=== PATIENT | male | born 1985 | race Caucasian/White ===

== ENCOUNTER 2019-01-31 05:19 | Emergency (ER) | payer SELFPAY ==
[~2019-01-31] VITALS: Ht 172.7 cm; Wt 74.8 kg
[2019-01-31 05:24] VITALS: BP 119/75
--- NOTE | 2019-01-31 05:36 | NUR ---
PT CAME TO ER BY SELF C/O RIGHT ARM WOUND. PATIENT HAS A RIGHT ANTECUBITAL FOSSA EXTRAVASATION. PATIENT STATES HE USES METH AND SHOOTS IT IN HIS RIGHT ARM. HE STATES HE LAST USED 1 HOUR AGO. NO SOB. BREATHING EVENLY AND UNLABORED.
--- NOTE | 2019-01-31 05:40 | NUR ---
PATIENT'S WOUND CLEANED
--- NOTE | 2019-01-31 05:40 | NUR ---
SEEN AND EXAMINED BY
--- NOTE | 2019-01-31 06:09 | NUR ---
ARM BAND REMOVED. PATIENT'S GAIT IS STEADY.
--- NOTE | 2019-01-31 06:11 | NUR ---
PATIENT LEFT AGAINST MEDICAL ADVICE. SEEN AND EXAMINED BY
--- NOTE | 2019-01-31 06:13 | NUR ---
Patient does not wish to proceed with medical care recommended by Dr. Soler. Patient given information related to possible complications, up to and including , which could occur as a result of leaving the hospital at this time. Patient verbalizes understanding of risks involved due to leaving against medical advice. Patient has signed AMA form.
== END 2019-01-31 06:27 | disposition left against medical advice (07) ==
LOC: ER 05:23
DX: L53.9 Erythematous condition, unspecified (principal); Z98.890 Other specified postprocedural states; Z60.2 Problems related to living alone
CPT/HCPCS: 99281; A6403

== ENCOUNTER 2019-01-31 11:24 | Emergency (ER) | payer MEDICAID ==
[~2019-01-31] VITALS: Ht 172.7 cm; Wt 74.8 kg
--- NOTE | 2019-01-31 11:30 | NUR ---
"i need seroquel." "im suicidal and i want to ." +si, "ill cut my wrist" PT TO BED 12, -SOB, NAD NOTED, VSS, PENDING MD LOBO
--- NOTE | 2019-01-31 11:58 | NUR ---
securuty at bedside. wanded. belongings to safe locker. sitter at bedside.
[2019-01-31 12:27] LABS: BASOPHILS % (AUTO) 0.4 % (0.0-2.0); EOSINOPHILS % (AUTO) 1.3 % (0.0-6.0); HEMATOCRIT 35 % (39-51); HEMOGLOBIN 11.7 g/dL (13.5-17.5); LYMPHOCYTES # (AUTO) 1.7 /CMM (0.8-4.8); MEAN CORPUSCULAR HGB CONC 34 g/dl (31.0-36.0); MEAN CORPUSCULAR VOLUME 85 fL (80-96); MONOCYTES # (AUTO) 1.3 /CMM (0.1-1.30); MONOCYTES % (AUTO) 12.4 % (2.0-12.0); NEUTROPHILS # (AUTO) 7.4 /CMM (1.8-8.9); NEUTROPHILS % (AUTO) 69.9 % (43.0-81.0); PLATELET COUNT (AUTO) 376 /CMM (150-450); RED BLOOD CELL COUNT(AUTO) 4.14 MIL/uL (4.5-6.0); WHITE BLOOD COUNT (AUTO) 10.5 K/uL (4.3-11.0)
[2019-01-31 12:37] LABS: APPEARANCE,URINE Clear (CLEAR); BILIRUBIN,URINE Negative (NEGATIVE); BLOOD, URINE Negative Ery/uL (NEGATIVE); COLOR,URINE Yellow (YELLOW); KETONES,URINE Negative (NEGATIVE); LEUKOCYTE ESTERASE ,URINE Negative (NEGATIVE); NITRITE, URINE Negative (NEGATIVE); PROTEIN,URINE Negative (NEGATIVE); UGLUCOSE Negative (NEGATIVE); UROBILINOGEN,URINE 0.2 EU/dL (0.2)
[2019-01-31 12:39] LABS: CARBON DIOXIDE 30 mmol/L (21-32); CHLORIDE 107 mmol/L (98-107); CREATININE 0.7 mg/dL (0.6-1.3); GLUCOSE 84 mg/dL (74-106); POTASSIUM 3.9 mmol/L (3.5-5.1); SODIUM SERUM 143 mmol/L (136-145); UREA NITROGEN, BLOOD 12 mg/dL (7-18)
[2019-01-31 12:44] LABS: ALANINE AMINOTRANSFERASE 43 U/L (12-78); ALBUMIN 3.3 g/dL (3.4-5.0); ALCOHOL, BLOOD < 3 mg/dL (0-0); ALKALINE PHOSPHATASE 73 U/L (46-116); ASPARTATE AMINOTRANSFERASE 25 U/L (15-37); BILIRUBIN,DIRECT 0.1 mg/dL (0.0-0.2); BILIRUBIN,TOTAL 0.3 mg/dL (0.2-1.0); TOTAL PROTEIN, SERUM 7.9 g/dL (6.4-8.2)
[2019-01-31 12:45] LABS: ACETAMINOPHEN 0 ug/ml (10-30); SALICYLATE 1.1 mg/dL (2.8-20.0)
[2019-01-31] MEDS ORDERED: ZIPRASIDONE MESYLATE 20 MG/VIAL VIAL IM ONE ×2 (13:00→13:28)
[2019-01-31] MEDS ORDERED: WATER FOR INJECTION,STERILE 10 ML ONE (13:28)
[2019-01-31] MEDS ORDERED: KETOROLAC TROMETHAMINE INJ 30 MG/ML VIAL ONE (13:28)
[2019-01-31] MEDS ORDERED: KETOROLAC TROMETHAMINE INJ 60 MG/2 ML VIAL IM ONE (13:30)
--- NOTE | 2019-01-31 14:00 | NUR ---
ACCORDING TO AURELIA PAREDES, PT DENIES ANY S/I, DENIES H/I, PT IS OKAY TO BE DISCHARGED, PROVIDED WITH HOMELESS RESOURCES
[2019-01-31 14:30] VITALS: BP 129/75
--- NOTE | 2019-01-31 15:01 | NUR ---
Patient given written and verbal discharge instructions. Patient verbalizes understanding of instructions. Patient is ambulatory with steady gait. Refuses offer of halfway placement. Patient given list of available shelters in surrounding area.
== END 2019-01-31 15:01 | disposition home or self-care (01) ==
LOC: ER 11:24
DX: S41.101A Unspecified open wound of right upper arm, initial encounter (principal); L91.0 Hypertrophic scar; F15.20 Other stimulant dependence, uncomplicated; Z98.890 Other specified postprocedural states; Z60.2 Problems related to living alone; X58.XXXA Exposure to other specified factors, initial encounter; Y93.89 Activity, other specified; Y92.89 Other specified places as the place of occurrence of the external cause; Y99.8 Other external cause status
CPT/HCPCS: 36415; 80048; 80076; 80305; 80307; 80329; 81001; 85025; 96372 ×2; 99283; A4217; G0480; J1885; J3486; 81000-TC

== ENCOUNTER 2019-01-31 21:38 | Emergency (ER) | payer MEDICAID ==
[~2019-01-31] VITALS: Ht 177.8 cm; Wt 70.3 kg
--- NOTE | 2019-01-31 21:50 | NUR ---
PT AAOX4. AMBULATORY. PT [id number] FOR BIZZARE BEHAVIOR. PER RA, PT WAS FOUND IN [employer] HITTING HIS HEAD. -SI, -HI. PT HAS LESIONS ON HIS HEAD. UPON PLACING THE PATIENT IN A GOWN SCARS ON R ARM NOTED. LESION ON R FOREARM TO UPPER ARM NOTED. SMALL NEEDLE SPOTS FOUND ON BOTH HANDS. ALSO, RED SPOTS NOTED ON R HAND. PT PLACED IN GOWN AND MONITOR. BLANKETS GIVEN. NO ACUTE DISTRESS NOTED.
[2019-01-31] MEDS ORDERED: LORAZEPAM 1 MG TABLET ONE ×2 (21:55→23:17)
[2019-01-31] MEDS ORDERED: OLANZAPINE 5 MG TABLET ONE ×2 (21:56→23:17)
[2019-01-31] MEDS ORDERED: TDAP [DIPH/PERTUSSIS/TET] 0.5 ML VIAL IM ONE ×2 (21:56→22:00)
[2019-01-31] MEDS ORDERED: LORAZEPAM 1 MG TABLET PO ONE ×2 (22:00→23:30)
[2019-01-31] MEDS ORDERED: OLANZAPINE 5 MG TABLET PO ONE ×2 (22:00→23:30)
--- NOTE | 2019-01-31 22:06 | NUR ---
TRANSPORTATION MUSEUM HELPER AT BEDSIDE FOR LAB COLLECTION
[2019-01-31 22:14] LABS: BASOPHILS # (AUTO) 0.1 /CMM (0.0-0.2); BASOPHILS % (AUTO) 0.5 % (0.0-2.0); EOSINOPHILS % (AUTO) 0.9 % (0.0-6.0); HEMATOCRIT 37 % (39-51); HEMOGLOBIN 11.9 g/dL (13.5-17.5); LYMPHOCYTES # (AUTO) 1.9 /CMM (0.8-4.8); LYMPHOCYTES % (AUTO) 16.1 % (20.0-44.0); MEAN CORPUSCULAR HGB CONC 32 g/dl (31.0-36.0); MEAN CORPUSCULAR VOLUME 85 fL (80-96); MONOCYTES # (AUTO) 1.6 /CMM (0.1-1.30); NEUTROPHILS # (AUTO) 8.3 /CMM (1.8-8.9); NEUTROPHILS % (AUTO) 69.5 % (43.0-81.0); PLATELET COUNT (AUTO) 431 /CMM (150-450); RED BLOOD CELL COUNT(AUTO) 4.36 MIL/uL (4.5-6.0); WHITE BLOOD COUNT (AUTO) 11.9 K/uL (4.3-11.0)
[2019-01-31 22:19] LABS: CALCIUM, SERUM 8.8 mg/dL (8.5-10.1); CARBON DIOXIDE 29 mmol/L (21-32); CHLORIDE 107 mmol/L (98-107); GLUCOSE 86 mg/dL (74-106); POTASSIUM 3.9 mmol/L (3.5-5.1); SODIUM SERUM 145 mmol/L (136-145); UREA NITROGEN, BLOOD 15 mg/dL (7-18)
--- NOTE | 2019-01-31 22:19 | NUR ---
URINE COLLECTED AND SENT TO LAB
[2019-01-31 22:25] LABS: ALANINE AMINOTRANSFERASE 45 U/L (12-78); ALBUMIN 3.6 g/dL (3.4-5.0); ALCOHOL, BLOOD < 3 mg/dL (0-0); ALKALINE PHOSPHATASE 75 U/L (46-116); ASPARTATE AMINOTRANSFERASE 28 U/L (15-37); BILIRUBIN,DIRECT 0.1 mg/dL (0.0-0.2); BILIRUBIN,TOTAL 0.3 mg/dL (0.2-1.0); TOTAL PROTEIN, SERUM 8.2 g/dL (6.4-8.2)
[2019-01-31 22:28] LABS: APPEARANCE,URINE Clear (CLEAR); BILIRUBIN,URINE Negative (NEGATIVE); BLOOD, URINE Negative Ery/uL (NEGATIVE); COLOR,URINE Yellow (YELLOW); KETONES,URINE Negative (NEGATIVE); LEUKOCYTE ESTERASE ,URINE Negative (NEGATIVE); NITRITE, URINE Negative (NEGATIVE); PH,URINE 6.5 (5.0-8.0); PROTEIN,URINE Negative (NEGATIVE); UGLUCOSE Negative (NEGATIVE); UROBILINOGEN,URINE 0.2 EU/dL (0.2)
[2019-01-31 23:05] LABS: SALICYLATE 1.3 mg/dL (2.8-20.0)
--- NOTE | 2019-01-31 23:21 | NUR ---
PT RESTING IN BED COMFORTABLY. NO ACUTE DISTRESS. BLANKETS PROVIDED.
--- NOTE | 2019-01-31 23:53 | NUR ---
PT RESTING. BLANKETS PROVIDED.
--- NOTE | 2019-02-01 01:18 | NUR ---
PT RESTING COMFORTABLY.
[2019-02-01 07:27] VITALS: BP 124/72
--- NOTE | 2019-02-01 07:27 | NUR ---
Pt ok to discharge per Dr Soler. Patient given written and verbal discharge instructions. Patient verbalizes understanding of instructions. Patient is ambulatory with steady gait. Refuses offer of intermediate placement. Patient given list of available shelters in surrounding area.
== END 2019-02-01 07:53 | disposition home or self-care (01) ==
LOC: ER 21:41
DX: S40.811A Abrasion of right upper arm, initial encounter (principal); S00.81XA Abrasion of other part of head, initial encounter; L03.113 Cellulitis of right upper limb; F15.10 Other stimulant abuse, uncomplicated; F29 Unspecified psychosis not due to a substance or known physiological condition; F19.10 Other psychoactive substance abuse, uncomplicated; F41.9 Anxiety disorder, unspecified; Z98.890 Other specified postprocedural states; Z60.2 Problems related to living alone; Z59.0 Homelessness; Z23 Encounter for immunization; Y33.XXXA Other specified events, undetermined intent, initial encounter; Y93.89 Activity, other specified; Y92.89 Other specified places as the place of occurrence of the external cause; Y99.8 Other external cause status
CPT/HCPCS: 36415; 70450; 72125; 80048; 80076; 80305; 80307; 80329; 81001; 85025; 90471; 90715; 99284; G0480; 81000-TC